=== PATIENT | female | born 1985 | race Caucasian/White ===

== ENCOUNTER 2018-07-28 14:34 | Outpatient (CLI) | payer BC, SELFPAY ==
[2018-07-28 15:04] LABS: Abs Immature Grans 0.01 k/cumm (0.0-0.09); Absolute Basophil Count 0.02 k/cumm (0.0-0.2); Absolute Eosinophil Count 0.09 k/cumm (0.0-0.7); Absolute Lymphocyte Count 2.96 k/cumm (1.2-3.4); Absolute Monocyte Count 0.43 k/cumm (0.11-0.7); Absolute Neutrophil Count 5.14 k/cumm (1.2-6.7); Basophils % 0.2; HCT 39.2 % (36.0-46.0); HGB 13.8 g/dL (12.0-15.5); Immature Grans % 0.1; Lymphocytes % 34.2; Mean Corp. HGB Concentration 35.2 g/dL (32.0-36.0); Mean Corpuscular Hemoglobin 31.3 pg (27.0-33.0); Mean Corpuscular Volume 88.9 fL (80-95); Mean Platelet Volume 10.1 fL (8.0-11.0); Neutrophils % 59.5; Platelet Count 251 x1000/uL (130-400); RBC 4.41 m/cumm (4.00-5.20); RBC Distribution Width 12.3 % (11.7-14.6); White Blood Cell Count 8.65 k/cumm (4.4-10.8)
[2018-07-28 16:04] LABS: *AMPHETAMINES SCREEN URINE Negative (Negative); *BARBITURATES SCREEN URINE Negative (Negative); *BENZODIAZEPINES SCREEN URINE Negative (Negative); Cannabinoids THC Negative (Negative); Cocaine Screen,Urine Negative (Negative); METHADONE URINE SCREEN Negative (Negative); OPIATES URINE SCREEN Negative (Negative)
[2018-07-28 16:15] LABS: Tricyclic Antidepressants Negative (Negative)
[2018-07-28 16:15] LABS: TSH (W/Ref FT4) 0.42 uIU/mL (0.358-3.74)
[2018-07-30 13:03] LABS: HIV-1/2 Ag & Ab Screen Negative (NEGAT)
[2018-07-31 11:05] LABS: Hepatitis B Surface Ag Negative (NEGAT)
[2018-07-31 11:14] LABS: Hepatitis C Ab w Rflx HCV PCR Negative (NEGAT)
[2018-07-31 12:18] LABS: Rubella IgG Ab (UVM) Positive; Syphilis Serology (RPR) Negative (Negative); Varicella IgG Antibody Positive
[2018-08-02 07:27] LABS: Buprenorphine Negative; Norbuprenorphine Negative
== END 2018-07-28 14:54 ==
PROVIDERS: Visit Provider Advanced Practice Midwife
DX: Z34.91 Encounter for supervision of normal pregnancy, unspecified, first trimester (principal); Z11.59 Encounter for screening for other viral diseases; Z01.84 Encounter for antibody response examination; Z11.4 Encounter for screening for human immunodeficiency virus [HIV]
CPT/HCPCS: 36415; 80055; 80307; 86787; 86803; 86850; 86900; 86901; 87340; 87389; 84443; 86592; 86762; 87086

== ENCOUNTER 2018-08-25 01:09 | Outpatient (CLI) | payer BC, SELFPAY ==
--- NOTE | 2018-08-25 11:24 | DI.US_ITS ---
SYMPTOMS/DIAGNOSIS: EVALUATE PLACENTA, ? PREVIA, G44.00-PLACENTA PREVIA WITHOUT HEMORRHAGE OB ULTRASOUND: Predicted Gestational Age: Indication/History: 14+4 Wks Range: to Prior US done on: Determined by: First US LMP X History EDC by prior US: For multiple gestations: Baby PLACENTA: Grade: 0 Location: Anterior Posterior PRESENTATION: RT LT X LOW LYING PREVIA Cephalic Trans (Head RT LT ) Varied X Breech BIOMETRY: Anatomy Identified: BPD: mm wks 4 chamber Heart Heart Rate 155 BPM HC: mm wks LVOT Post Fossa AC: mm wks RVOT Ventricles FL: mm wks Stomach Nose Bladder Lips Cisterna Magna: mm CI: Kidneys Palate Cerebellum: mm 3 vessel cord Spine EFW: grms % Cord Insertion NS= not seen Composite Age (US) wks Many abnormalities cannot be diagnosed. A normal exam does not exclude congenital abnormality. EDC by US Amniotic Fluid Index: Normal COMMENTS: 1. Cervical length 5.2 cm 2. Marginal placenta previa-placental tip 7 mm from internal cervical os on postvoid transvaginal images. 3. 4 mm echogenic foci adjacent to placenta RUQ: LUQ: RLQ: LLQ: Total: cm Biophysical Profile: Score 0/2 CHARLIE (>2cm) Respirations (>30 sec) Body flexion/extension Extremity flexion/extension TOTAL SCORE No prior comparison exams are available. The placenta is posterior and low lying with the tip of the placenta 7 mm from the internal os. Transabdominal and postvoid transvaginal exams were performed. There is a normal quantity of amniotic fluid. The fetus was in variable positions during the exam. cardiac activity is identified. IMPRESSION: Low-lying placenta with the placental tip 7 mm from the internal os. The cervical length is measured at 5.2 cm.
== END 2018-08-25 01:29 ==
PROVIDERS: Visit Provider Obstetrics & Gynecology
DX: O44.41 Low lying placenta NOS or without hemorrhage, first trimester (principal)
CPT/HCPCS: 76815

== ENCOUNTER 2018-08-25 13:59 | Outpatient (CLI) | payer SELFPAY ==
[2018-08-25 14:17] LABS: Kit/Specimen SENT
== END 2018-08-25 14:19 ==
PROVIDERS: Visit Provider Advanced Practice Midwife
DX: Z34.91 Encounter for supervision of normal pregnancy, unspecified, first trimester (principal)
CPT/HCPCS: 36415

== ENCOUNTER 2018-09-22 00:53 | Outpatient (CLI) | payer MEDICAID, SELFPAY ==
--- NOTE | 2018-09-22 09:45 | DI.US_ITS ---
Predicted Gestational Age: Indication/History: SURVEY,? PLACENTA LOCATION 18.4 Wks Range: 17.4 to 19.4 Prior US done on: Determined by: First US LMP History EDC by prior US: 02/19/19 For multiple gestations: Baby PLACENTA: Grade: 0 Location: Anterior Posterior X PRESENTATION: RT LT LOW LYING PREVIA X Cephalic X Trans (Head RT LT ) Varied Breech BIOMETRY: Anatomy Identified: BPD: 42 mm 18.4 wks 4 chamber Heart X Heart Rate BPM HC: 159 mm 18.5 wks LVOT X Post Fossa X AC: 135 mm 19 wks RVOT X Ventricles X FL: 28 mm 18.3 wks Stomach X Nose X Bladder X Lips X Cisterna Magna: 4.2 mm CI: 82 Kidneys X Palate X Cerebellum: 1.87 mm 3 vessel cord X Spine X EFW: 254 grms 55TH % Cord Insertion X NS= not seen Composite Age (US) 18.5 wks Many abnormalities cannot be diagnosed. A normal exam does not exclude congenital abnormality. EDC by US 02/18/19 Amniotic Fluid Index: Normal COMMENTS: RUQ: LUQ: RLQ: LLQ: Total: cm Biophysical Profile: Score 0/2 CHARLIE (>2cm) Respirations (>30 sec) Body flexion/extension Extremity flexion/extension TOTAL SCORE Routine examination. There is a single intrauterine gestation. The fetus is in the cephalic presentation. No abnormalities were identified. Cardiac activity was noted on examination. The heart rate was not obtained during the examination. Estimated gestational age is 18 weeks 5 days. The placenta appears to cover the internal os consistent with a placenta previa. Amniotic fluid index is within normal limits visually. IMPRESSION: Single living intrauterine gestation. Estimated sonographic age is 18 weeks 5 days. Findings of complete placenta previa.
== END 2018-09-22 01:13 ==
PROVIDERS: Visit Provider Advanced Practice Midwife
DX: Z34.92 Encounter for supervision of normal pregnancy, unspecified, second trimester (principal); O44.02 Complete placenta previa NOS or without hemorrhage, second trimester
CPT/HCPCS: 76805

== ENCOUNTER 2018-12-01 01:26 | Outpatient (CLI) | payer MEDICAID, SELFPAY ==
--- NOTE | 2018-12-01 08:31 | DI.US_ITS ---
EXAM: US OB F/U FACIAL/LVOT/RVOT CLINICAL HISTORY: prev. dx placenta previa looking for migration, Z34.90. TECHNIQUE: Ultrasound performed using standard protocol. COMPARISON: US OB 2-3 trimester from 09/22/2018 FINDINGS: Today's examination was obtained to follow low lying placenta noted on prior examination of September 22 . On today's examination there is no placenta previa and the placental tip inferiorly lies about 7.5 cm from the internal os. Fetus is in breech presentation. cardiac activity observed at a rat e of 128 BPM. IMPRESSION:
[2018-12-01 09:09] LABS: Glucose,1 Hr (Glucola) 99 mg/dL (80-140); HCT 34.6 % (36.0-46.0); Mean Corp. HGB Concentration 34.7 g/dL (32.0-36.0); Mean Corpuscular Hemoglobin 33.1 pg (27.0-33.0); Mean Corpuscular Volume 95.6 fL (80-95); Mean Platelet Volume 9.6 fL (8.0-11.0); Platelet Count 258 x1000/uL (130-400); RBC 3.62 m/cumm (4.00-5.20); RBC Distribution Width 12.4 % (11.7-14.6); White Blood Cell Count 11.16 k/cumm (4.4-10.8)
== END 2018-12-01 01:46 ==
PROVIDERS: Visit Provider Advanced Practice Midwife
DX: Z34.92 Encounter for supervision of normal pregnancy, unspecified, second trimester (principal); Z36.2 Encounter for other antenatal screening follow-up
CPT/HCPCS: 36415; 76815; 82950; 85027

== ENCOUNTER 2019-01-24 20:22 | Outpatient (REF) | payer MEDICAID, SELFPAY ==
[2019-01-24 14:04] LABS: *AMPHETAMINES SCREEN URINE Negative (Negative); *BARBITURATES SCREEN URINE Negative (Negative); *BENZODIAZEPINES SCREEN URINE Negative (Negative); Cannabinoids THC Negative (Negative); Cocaine Screen,Urine Negative (Negative); METHADONE URINE SCREEN Negative (Negative); OPIATES URINE SCREEN Negative (Negative)
[2019-01-24 14:08] LABS: Tricyclic Antidepressants Negative (Negative)
[2019-01-29 14:23] LABS: Buprenorphine Negative; Norbuprenorphine Negative
== END 2019-01-24 20:42 ==
LOC: LBN 20:22
PROVIDERS: Visit Provider Advanced Practice Midwife
DX: Z34.93 Encounter for supervision of normal pregnancy, unspecified, third trimester (principal); Z36.85 Encounter for antenatal screening for Streptococcus B
CPT/HCPCS: 80307; 87081

== ENCOUNTER 2019-02-07 12:26 | Outpatient (CLI) | payer MEDICAID, SELFPAY ==
[2019-02-07 12:04] LABS: HCT 38.7 % (36.0-46.0); HGB 13.2 g/dL (12.0-15.5); Mean Corp. HGB Concentration 34.1 g/dL (32.0-36.0); Mean Corpuscular Hemoglobin 32.5 pg (27.0-33.0); Mean Corpuscular Volume 95.3 fL (80-95); Mean Platelet Volume 10.2 fL (8.0-11.0); Platelet Count 260 x1000/uL (130-400); RBC 4.06 m/cumm (4.00-5.20); RBC Distribution Width 13.3 % (11.7-14.6); White Blood Cell Count 11.35 k/cumm (4.4-10.8)
[2019-02-07 12:47] LABS: ALT 11 U/L (14-59); AST 15 U/L (15-37); Albumin 3.1 g/dL (3.4-5.0); Alkaline Phosphatase 140 U/L (46-116); Anion Gap 11.9 mmol/L (3-11); BUN 4 mg/dL (7-18); Bilirubin, Total 0.7 mg/dL (0.2-1.0); CO2 22.1 mmol/L (21.0-32.0); Calcium 9.1 mg/dL (8.5-10.1); Chloride 107 mmol/L (98-107); Glucose 80 mg/dL (74-106); Potassium 3.8 mmol/L (3.5-5.1); Sodium 141 mmol/L (136-145); Total Protein 6.5 g/dL (6.4-8.2); Uric Acid 4.8 mg/dL (2.6-6.0)
[2019-02-07 12:53] LABS: PROTEIN 8.9 mg/dL
[2019-02-07 12:55] LABS: COMMENT (LAB VIEW ONLY) 52.36 mg/dL; Prot/Crea Ur Ratio 0.16
== END 2019-02-07 12:46 ==
PROVIDERS: Visit Provider Advanced Practice Midwife
DX: O14.93 Unspecified pre-eclampsia, third trimester (principal)
CPT/HCPCS: 36415; 80053; 85027; 82565; 84156; 84550

== ENCOUNTER 2019-02-18 22:19 | Inpatient (IN) | payer MEDICAID, SELFPAY ==
[2019-02-19] MEDS: Ibuprofen 600 MG TAB PO ×4 (00:33→20:57)
[2019-02-19] MEDS: Hamamelis Leaf/Glycerin 100 EACH BOX PR (01:31)
[2019-02-19 01:39] LABS: HCT 38.6 % (36.0-46.0); HGB 13.2 g/dL (12.0-15.5); Mean Corp. HGB Concentration 34.2 g/dL (32.0-36.0); Mean Corpuscular Hemoglobin 32.5 pg (27.0-33.0); Mean Corpuscular Volume 95.1 fL (80-95); Platelet Count 237 x1000/uL (130-400); RBC 4.06 m/cumm (4.00-5.20)
[2019-02-20] MEDS: Ibuprofen 600 MG TAB PO (05:30)
[2019-02-20 06:53] LABS: HCT 35.3 % (36.0-46.0); HGB 11.9 g/dL (12.0-15.5); Mean Corp. HGB Concentration 33.7 g/dL (32.0-36.0); Mean Corpuscular Hemoglobin 32.4 pg (27.0-33.0); Mean Corpuscular Volume 96.2 fL (80-95); Mean Platelet Volume 10.8 fL (8.0-11.0); Platelet Count 191 x1000/uL (130-400); RBC 3.67 m/cumm (4.00-5.20); RBC Distribution Width 13.1 % (11.7-14.6); White Blood Cell Count 11.37 k/cumm (4.4-10.8)
== END 2019-02-20 11:45 | disposition home or self-care (01) | DRG 807 ==
PROVIDERS: Admitting Provider Advanced Practice Midwife; PCP Nurse Practitioner Family; Visit Provider Advanced Practice Midwife
DX: O62.3 Precipitate labor (principal); Z37.0 Single live birth; Z3A.40 40 weeks gestation of pregnancy
CPT/HCPCS: 36415; 85027; 86850; 86900; 86901